=== PATIENT | female | born 1980 | race Caucasian/White ===

== ENCOUNTER → 2017-03-20 | Outpatient (CLI) | payer BC ==
[~2017-03-20] MED LIST: CYCL10TA9 PO; DULO30CA PO; GBPN600T PO; NAPR-243 PO; NORG1TAB15 PO; OXYC-272 PO; TRAM50TA2 PO
== END ==
LOC: LABNPT 10:45
PROVIDERS: ATTEND Obstetrics & Gynecology
DX: O14.03 Mild to moderate pre-eclampsia, third trimester (principal); Z3A.00 Weeks of gestation of pregnancy not specified
CPT/HCPCS: 82570; 84156

== ENCOUNTER → 2017-04-05 | Outpatient (CLI) | payer BC ==
[2017-04-05 12:37] LABS: PROTEIN/CREATININE RATIO 0.28
== END ==
LOC: LABNPT 12:14
PROVIDERS: ATTEND Obstetrics & Gynecology
DX: O14.03 Mild to moderate pre-eclampsia, third trimester (principal); Z3A.00 Weeks of gestation of pregnancy not specified
CPT/HCPCS: 82570; 84156

== ENCOUNTER 2017-04-08 11:34 | Inpatient (IN) | payer BC ==
[2017-04-08] VITALS (7 sets, daily range): BP systolic 130–158; BP diastolic 76–89
[~2017-04-08] VITALS: Ht 167.6 cm; Wt 79.8 kg
[2017-04-08] MEDS ORDERED: D5 LR IV SOLUTION 1,000 ML IV ONE (11:52)
[2017-04-08 12:32] LABS: BILIRUBIN,URINE NEGATIVE (NEGATIVE); KETONES,URINE NEGATIVE (NEGATIVE); LEUKOCYTE ESTERASE ,URINE 1+ (NEGATIVE); NITRITE,URINE NEGATIVE (NEGATIVE); PH,URINE 8 (5-9); PROTEIN,URINE 1+ (NEGATIVE); UROBILINOGEN,URINE NORMAL (NORMAL)
[2017-04-08 12:44] LABS: BASOPHILS % (AUTO) 0 % (0-10); EOSINOPHILS # (AUTO) 0.1 10^3/uL (0.0-0.3); EOSINOPHILS % (AUTO) 1 % (0-10); LYMPHOCYTES # (AUTO) 1.9 X 10^3 (1.0-4.0); LYMPHOCYTES % (AUTO) 31 % (12-44); MEAN CORPUSCULAR HEMOGLOBIN 34 PG (25-34); MEAN CORPUSCULAR HGB CONC 36 G/DL (32-36); MEAN CORPUSCULAR VOLUME 94 FL (80-99); MEAN PLATELET VOLUME 11.1 FL (7.4-10.4); MONOCYTES # (AUTO) 0.4 X 10^3 (0.0-1.0); MONOCYTES % (AUTO) 6 % (0-12); NEUTROPHILS # (AUTO) 3.7 X 10^3 (1.8-7.8); NEUTROPHILS % (AUTO) 62 % (42-75); PLATELET COUNT 147 10^3/uL (130-400); RED BLOOD COUNT 3.48 10^6/uL (4.35-5.85); RED CELL DISTRIBUTION WIDTH 13.5 % (10.0-14.5); WHITE BLOOD COUNT 5.9 10^3/uL (4.3-11.0)
[2017-04-08 12:52] LABS: SQUAMOUS EPITHELIAL CELL,UR 0-2 /HPF; WBC,URINE 0-2 /HPF
[2017-04-08 12:55] LABS: ALANINE AMINOTRANSFERASE 15 U/L (0-55); ALBUMIN 3.1 GM/DL (3.2-4.5); ANION GAP 13 MMOL/L (5-14); ASPARTATE AMINO TRANSFERASE 26 U/L (5-34); BILIRUBIN,TOTAL 0.5 MG/DL (0.1-1.0); BLOOD UREA NITROGEN 4 MG/DL (7-18); BUN/CREATININE RATIO 7; CALCIUM 8.9 MG/DL (8.5-10.1); CARBON DIOXIDE 20 MMOL/L (21-32); CHLORIDE 106 MMOL/L (98-107); CREATININE SERUM 0.55 MG/DL (0.60-1.30); GFR ESTIMATED > 60; GLUCOSE 66 MG/DL (70-105); LACTATE DEHYDROGENASE 210 U/L (125-220); POTASSIUM 2.7 MMOL/L (3.6-5.0); SODIUM 139 MMOL/L (135-145); TOTAL PROTEIN 5.7 GM/DL (6.4-8.2); URIC ACID 6.5 MG/DL (2.6-7.2)
[2017-04-08 12:57] LABS: PROTEIN/CREATININE RATIO 0.29
[2017-04-08] MEDS ORDERED: metroNIDAZOLE 500MG/100ML IVPB 100 ML IV ONE (14:30)
--- NOTE | 2017-04-08 14:39 | History & Physical ---
History and Physical Date Seen by Provider: Apr 08, 2017 Time Seen by Provider: 14:33 this patient is a 36-year-old white female with an EDC of [phone]. She was seen in clinic on this date with blood pressure 153/93. 3 days prior her blood pressure had elevated to 135/92 urine protein creatinine ratio was borderline at 0.28. Her platelet count had dropped from prior levels. It was at 155. She was having occasional contraction denied ruptured membranes or bleeding. She s She was requesting primary delivery to avoidaid she had occasional mild headache. Her being complicated by an abnormal tetra test giving a Down syndrome risk of 1 in 79. Amniocentesis was performed and showed normal karyotype. Her history is also significant for having had a fractured pelvis requiring surgery on multiple occasions. Healing problems with the the pelvic repairs and had pins that had to be replaced at one point as well. Her bladder was damaged in the period that her bladder has been repaired. the orthopedist who performed her pelvic surgery was noncommittal on whether she should avoid labor and a vaginal delivery. The feeling was that if her pelvis was damaged it could be worse than her previous repairs in order to repair it risk for additional injury would be elevated. Decision made to proceed with delivery when it is time for delivery. She was sent to labor and delivery for my clinic secondary to her increasing blood pressures. Allergies are none Medications are vitamins Medical history, past surgical history, obstetric history, family history, and social histories are per the antepartum record HEENT exam is normal Neck is supple no lymphadenopathy no thyromegaly Abdomen is gravid soft nontender nondistended Extreme show no clubbing or cyanosis. There is no Homans sign. Her back shows scars in the lower more area from her previous pelvic surgeries. She has a vertical midline incision scar from her anterior approach to repairs from from a traumatic fracture. Pelvic exam is deferred Monitor shows an occasional contraction with a normal heart rate pattern with numerous accelerations and no decelerations Lab work in my clinic is included in the chart. Repeat lab work from today is as follows Laboratory Tests Test 04/08/17 12:00 04/08/17 12:10 Range/Units Urine Color YELLOW Urine Clarity CLEAR Urine pH 8 5-9 Urine Specific [place] 1.015 L 1.016-1.022 Urine Protein 12 6-12 MG/DL Urine Glucose (UA) NEGATIVE NEGATIVE Urine Ketones NEGATIVE NEGATIVE Urine Nitrite NEGATIVE NEGATIVE Urine Bilirubin NEGATIVE NEGATIVE Urine Urobilinogen NORMAL NORMAL MG/DL Urine Leukocyte Esterase 1+ H NEGATIVE Urine RBC (Auto) 2+ H NEGATIVE Urine RBC RARE /HPF Urine WBC 0-2 /HPF Urine Squamous Epithelial Cells 0-2 /HPF Urine Crystals NONE /LPF Urine Bacteria TRACE /HPF Urine Casts NONE /LPF Urine Mucus NEGATIVE /LPF Urine Culture Indicated NO Urine Creatinine 41 30-125 MG/DL Urine Protein/Creatinine Ratio 0.29 White Blood Count 5.9 4.3-11.0 10^3/uL Red Blood Count 3.48 L 4.35-5.85 10^6/uL Hemoglobin 11.7 11.5-16.0 G/DL Hematocrit 33 L 35-52 % Mean Corpuscular Volume 94 80-99 FL Mean Corpuscular Hemoglobin 34 25-34 PG Mean Corpuscular Hemoglobin Concent 36 32-36 G/DL Red Cell Distribution Width 13.5 10.0-14.5 % Platelet Count 147 130-400 10^3/uL Mean Platelet Volume 11.1 H 7.4-10.4 FL Neutrophils (%) (Auto) 62 42-75 % Lymphocytes (%) (Auto) 31 12-44 % Monocytes (%) (Auto) 6 0-12 % Eosinophils (%) (Auto) 1 0-10 % Basophils (%) (Auto) 0 0-10 % Neutrophils # (Auto) 3.7 1.8-7.8 X 10^3 Lymphocytes # (Auto) 1.9 1.0-4.0 X 10^3 Monocytes # (Auto) 0.4 0.0-1.0 X 10^3 Eosinophils # (Auto) 0.1 0.0-0.3 10^3/uL Basophils # (Auto) 0.0 0.0-0.1 10^3/uL Sodium Level 139 135-145 MMOL/L Potassium Level 2.7 L 3.6-5.0 MMOL/L Chloride Level 106 98-107 MMOL/L Carbon Dioxide Level 20 L 21-32 MMOL/L Anion Gap 13 5-14 MMOL/L Blood Urea Nitrogen 4 L 7-18 MG/DL Creatinine 0.55 L 0.60-1.30 MG/DL Estimat Glomerular Filtration Rate > 60 BUN/Creatinine Ratio 7 Glucose Level 66 L 70-105 MG/DL Uric Acid 6.5 2.6-7.2 MG/DL Calcium Level 8.9 8.5-10.1 MG/DL Total Bilirubin 0.5 0.1-1.0 MG/DL Aspartate Amino Transf (AST/SGOT) 26 5-34 U/L Alanine Aminotransferase (ALT/SGPT) 15 0-55 U/L Alkaline Phosphatase 144 H 40-136 U/L Lactate Dehydrogenase 210 125-220 U/L Total Protein 5.7 L 6.4-8.2 GM/DL Albumin 3.1 L 3.2-4.5 GM/DL Vital Signs Date Time Temp Pulse Resp B/P (MAP) Pulse Ox O2 Delivery O2 Flow Rate FiO2 04/08/17 13:40 69 18 130/84 Room Air 04/08/17 13:15 71 18 142/86 Room Air 04/08/17 12:15 72 18 130/84 Room Air 04/08/17 11:55 99.0 69 18 158/81 Room Air Assessment and plan 36 and 6/2 weeks gestation patient with history of pelvic trauma warranting delivery who also has preeclampsia. She had been addie but has not shown any cervical change and contractions and decreased with hydration. Plan is for admission easily preeclampsia and proceed with delivery at 37 weeks gestation which is tomorrow. If her preeclampsia becomes delivery would be accomplished promptly. patient understands the plan and agrees with that plan. 36-6/7 weeks' gestation with preeclampsia Allergies and Home Medications Allergies Coded Allergies: NKANo Known Allergies (Verified Allergy, Unknown, 07/10/06) Home Medications Cyclobenzaprine Hcl 10 Mg Tablet, 10 MG PO TID PRN for MUSCLE SPASMS, (Reported) PRN MUSCLES SPASMS Duloxetine Hcl 30 Mg Capsule.dr, 30 MG PO DAILY, (Reported) Gabapentin 600 Mg Tab, 600 MG PO TID, (Reported) Naproxen 500 Mg Tablet, 1 EACH PO TID PRN for PAIN, #20 FOR PAIN Prescribed by: THIERNO VILLATORO on 03/15/15 0158 Norgestimate-Ethinyl Estradiol 1 Each Tablet, 1 TAB PO DAILY, (Reported) Oxycodone Hcl/Acetaminophen 1 Tab Tablet, 1 TAB PO TID PRN for SEVERE PAIN, ( Reported) NEEDED SEVERE PAIN Tramadol Hcl 50 Mg Tablet, 50 MG PO Q6H PRN for PAIN, (Reported) NEEDED PAIN Clinical Quality Measures DVT/VTE Risk/Contraindication: Risk Factor Score Per Nursin RFS Level Per Nursing on Admit: 1=Low/No VTE PPX CINDY TY MD Apr 08, 2017 2:39 pm
[2017-04-08] MEDS ORDERED: ACETAMINOPHEN 500 MG TAB (TYLENOL) PO PRN (19:00)
[2017-04-08] MEDS: D5 LR IV SOLUTION 1,000 ML IV SCH (20:10)
[2017-04-09] VITALS (15 sets, daily range): BP systolic 88–133; BP diastolic 61–88
[2017-04-09] MEDS: D5 LR IV SOLUTION 1,000 ML IV SCH (02:49)
[2017-04-09] MEDS ORDERED: LACTATED RINGERS 2,000 ML IV ONE (04:23)
[2017-04-09] MEDS ORDERED: CITRIC ACID/SOB CIT (BICITRA) 30 ML UDC ONE (05:40)
[2017-04-09] MEDS ORDERED: FAMOTIDINE 20MG/2ML IV (PEPCID) ONE (05:40)
[2017-04-09] MEDS ORDERED: METOCLOPRAMIDE INJ 10 MG/2 ML (REGLAN) ONE (05:40)
[2017-04-09] MEDS ORDERED: LACTATED RINGERS 1,000 ML IV PRN (05:47)
[2017-04-09] MEDS ORDERED: CITRIC ACID/SOB CIT (BICITRA) 30 ML UDC PO ONE (06:00)
[2017-04-09] MEDS ORDERED: METOCLOPRAMIDE INJ 10 MG/2 ML (REGLAN) IV ONE (06:00)
[2017-04-09] MEDS ORDERED: FAMOTIDINE 20MG/2ML IV (PEPCID) IV ONE (06:00)
[2017-04-09] MEDS: LACTATED RINGERS 1,000 ML IV PRN ×2 (06:29→08:00)
[2017-04-09] MEDS ORDERED: metroNIDAZOLE 500MG/100ML IVPB 100 ML ONE (06:31)
[2017-04-09] MEDS ORDERED: ceFAZolin 2 GM/50 ML NS 50 ML ONE (06:34)
--- NOTE | 2017-04-09 06:51 | Progress Note-Pre Operative ---
Pre-Operative Progress Note H&P Reviewed The H&P was reviewed, patient examined and no changes noted. Date Seen by Provider: Apr 09, 2017 Time Seen by Provider: 06:50 Date H&P Reviewed: Apr 09, 2017 Time H&P Reviewed: 06:50 Pre-Operative Diagnosis: 37 week with preeclampsia CINDY TY MD Apr 09, 2017 6:51 am
[2017-04-09] MEDS ORDERED: OXYTOCIN/NORMAL SALINE 500 ML IV SCH (06:52)
[2017-04-09] MEDS ORDERED: MEASLES,MUMPS,RUBELLA 1 EA INJ SC ONE (07:00)
[2017-04-09] MEDS ORDERED: MEPERIDINE (DEMEROL) INJ 100 MG/ML IM PRN (07:00)
[2017-04-09] MEDS ORDERED: ceFAZolin INJECTION 2,000 MG in NS (IVPB) 50 ML IV ONE (07:00)
[2017-04-09] MEDS ORDERED: PROMETHAZINE INJ 25 MG/ML (PHENERGAN) AMP IM PRN (07:00)
[2017-04-09] MEDS ORDERED: TETANUS,DIPTH,PERTUSS P/F (BOOSTRIX) 0.5 ML VIAL IM ONE (07:00)
[2017-04-09] MEDS ORDERED: D5 LR IV SOLUTION 1,000 ML IV ONE ×2 (07:00→17:22)
--- NOTE | 2017-04-09 07:03 | Progress Note-Standard ---
Standard Progress Note Progress Notes/Assess & Plan Date Seen by Provider: Apr 09, 2017 Time Seen by Provider: 07:01 Progress/Assessment & Plan patient without complaint. She denies headache. She denies rupture membranes or bleeding. She does feel baby moving. She has an occasional contraction. Vital Signs Date Time Temp Pulse Resp B/P (MAP) Pulse Ox O2 Delivery O2 Flow Rate FiO2 04/09/17 05:55 98.6 74 18 123/74 97 04/08/17 23:37 98.6 74 18 130/83 97 04/08/17 19:38 98.6 72 18 135/76 Room Air 04/08/17 18:00 97.7 75 18 134/89 99 Room Air 04/08/17 13:40 69 18 130/84 Room Air 04/08/17 13:15 71 18 142/86 Room Air 04/08/17 12:15 72 18 130/84 Room Air 04/08/17 11:55 99.0 69 18 158/81 Room Air I & O 04/09/17 07:00 Intake Total 2000 ml Balance 2000 ml Vital signs are stable. Blood pressures are labile but have been less than 160/ 110. Laboratory Tests Test 04/08/17 12:00 04/08/17 12:10 Range/Units Urine Color YELLOW Urine Clarity CLEAR Urine pH 8 5-9 Urine Specific [place] 1.015 L 1.016-1.022 Urine Protein 12 6-12 MG/DL Urine Glucose (UA) NEGATIVE NEGATIVE Urine Ketones NEGATIVE NEGATIVE Urine Nitrite NEGATIVE NEGATIVE Urine Bilirubin NEGATIVE NEGATIVE Urine Urobilinogen NORMAL NORMAL MG/DL Urine Leukocyte Esterase 1+ H NEGATIVE Urine RBC (Auto) 2+ H NEGATIVE Urine RBC RARE /HPF Urine WBC 0-2 /HPF Urine Squamous Epithelial Cells 0-2 /HPF Urine Crystals NONE /LPF Urine Bacteria TRACE /HPF Urine Casts NONE /LPF Urine Mucus NEGATIVE /LPF Urine Culture Indicated NO Urine Creatinine 41 30-125 MG/DL Urine Protein/Creatinine Ratio 0.29 White Blood Count 5.9 4.3-11.0 10^3/uL Red Blood Count 3.48 L 4.35-5.85 10^6/uL Hemoglobin 11.7 11.5-16.0 G/DL Hematocrit 33 L 35-52 % Mean Corpuscular Volume 94 80-99 FL Mean Corpuscular Hemoglobin 34 25-34 PG Mean Corpuscular Hemoglobin Concent 36 32-36 G/DL Red Cell Distribution Width 13.5 10.0-14.5 % Platelet Count 147 130-400 10^3/uL Mean Platelet Volume 11.1 H 7.4-10.4 FL Neutrophils (%) (Auto) 62 42-75 % Lymphocytes (%) (Auto) 31 12-44 % Monocytes (%) (Auto) 6 0-12 % Eosinophils (%) (Auto) 1 0-10 % Basophils (%) (Auto) 0 0-10 % Neutrophils # (Auto) 3.7 1.8-7.8 X 10^3 Lymphocytes # (Auto) 1.9 1.0-4.0 X 10^3 Monocytes # (Auto) 0.4 0.0-1.0 X 10^3 Eosinophils # (Auto) 0.1 0.0-0.3 10^3/uL Basophils # (Auto) 0.0 0.0-0.1 10^3/uL Sodium Level 139 135-145 MMOL/L Potassium Level 2.7 L 3.6-5.0 MMOL/L Chloride Level 106 98-107 MMOL/L Carbon Dioxide Level 20 L 21-32 MMOL/L Anion Gap 13 5-14 MMOL/L Blood Urea Nitrogen 4 L 7-18 MG/DL Creatinine 0.55 L 0.60-1.30 MG/DL Estimat Glomerular Filtration Rate > 60 BUN/Creatinine Ratio 7 Glucose Level 66 L 70-105 MG/DL Uric Acid 6.5 2.6-7.2 MG/DL Calcium Level 8.9 8.5-10.1 MG/DL Total Bilirubin 0.5 0.1-1.0 MG/DL Aspartate Amino Transf (AST/SGOT) 26 5-34 U/L Alanine Aminotransferase (ALT/SGPT) 15 0-55 U/L Alkaline Phosphatase 144 H 40-136 U/L Lactate Dehydrogenase 210 125-220 U/L Total Protein 5.7 L 6.4-8.2 GM/DL Albumin 3.1 L 3.2-4.5 GM/DL Vital Signs Date Time Temp Pulse Resp B/P (MAP) Pulse Ox O2 Delivery O2 Flow Rate FiO2 04/09/17 05:55 98.6 74 18 123/74 97 04/08/17 23:37 98.6 74 18 130/83 97 04/08/17 19:38 98.6 72 18 135/76 Room Air 04/08/17 18:00 97.7 75 18 134/89 99 Room Air 04/08/17 13:40 69 18 130/84 Room Air 04/08/17 13:15 71 18 142/86 Room Air 04/08/17 12:15 72 18 130/84 Room Air 04/08/17 11:55 99.0 69 18 158/81 Room Air I & O 04/09/17 07:00 Intake Total 2000 ml Balance 2000 ml Lab work is as noted. Abdomen is gravid nontender. Extreme show clubbing cyanosis. There is some pretibial pitting edema that is normal. There is no Homans sign Assessment and plan hospital day 2 now at 37 weeks gestation with preeclampsia. This patient has history of significant pelvic trauma with abdominal and pelvic surgery preparation. Plan is for primary delivery to avoid trauma to the pelvis. Pressures have been acceptable at bed rest. Plan is to proceed with this morning. CINDY TY MD Apr 09, 2017 7:03 am
[2017-04-09] MEDS ORDERED: fentaNYL INJECTION 100 MCG/2 ML AMP ONE (07:13)
[2017-04-09] MEDS ORDERED: ONDANSETRON 4 MG/2 ML (SDV) Z0FRAN ONE (07:53)
[2017-04-09] MEDS ORDERED: LACTATED RINGERS 1,000 ML IV ONE (07:53)
[2017-04-09] MEDS ORDERED: KETOROLAC 30 MG/ML VIAL IVP NR (08:20)
[2017-04-09] MEDS ORDERED: MEPERIDINE (DEMEROL) INJ 50 MG/ML IVP PRN (08:30)
[2017-04-09] MEDS ORDERED: ONDANSETRON 4 MG/2 ML (SDV) Z0FRAN IV PRN (08:30)
[2017-04-09] MEDS ORDERED: diphenhydrAMINE 50 MG/ML INJ (BENADRYL) IV PRN (08:30)
[2017-04-09] MEDS ORDERED: morphine INJ 10 MG/ML 1ML (SYR OR VIAL) IVP PRN (08:30)
[2017-04-09] MEDS ORDERED: METOCLOPRAMIDE INJ 10 MG/2 ML (REGLAN) IV PRN (08:30)
[2017-04-09] MEDS ORDERED: NALOXONE 0.4 MG/ML 1 ML (NARCAN) VIAL IV PRN ×2 (08:30)
--- NOTE | 2017-04-09 09:12 | OPERATIVE REPORT ---
DATE OF SERVICE: 04/09/2017 PREOPERATIVE DIAGNOSIS: Term at 37 weeks' gestation with preeclampsia and with a history of pelvic trauma, extensive pelvic surgical repairs. POSTOPERATIVE DIAGNOSIS: Term at 37 weeks' gestation with preeclampsia and with a history of pelvic trauma, extensive pelvic surgical repairs. OPERATIVE PROCEDURE: Primary low transverse . FINDINGS: Delivery of a viable male infant with Apgars of 9 and 9 at 1 and 5 minutes, weight of 7 pounds 10 ounces, time of 0747 and cord blood gas of 7.35. TATTOO IDENTIFIER FOR DELIVERY: MERLENE Grimaldo OPERATIVE DESCRIPTION: With the patient in a supine position, under satisfactory spinal anesthesia, she was prepped and draped in the usual fashion for abdominal surgery. Nagel catheter was placed in the urinary bladder and left to dependent drainage. A Pfannenstiel incision made the skin with scalpel at the lower abdomen 2 fingerbreadths above the symphysis pubis. The abdomen was entered in the usual manner. There was some scar tissue along the midline raphe/linea alba. That was taken down with very careful dissection and then the abdomen entered and the bowel was swept away in the usual manner. A bladder retractor was placed in position, a clean scalpel used to make a 4 cm hysterotomy incision transversely across the lower uterine segment. There was some bleeding from the lower pole of the placenta at the incision, the balance of the uterus was entered bluntly digitally and then the incision was extended bluntly as well. A vigorous viable male infant was delivered via the uterine incision. The infant had Apgars of 9 and 9 at 1 and 5 minutes respectively, weight of 7 pounds and 10 ounces and a time of 0747. There was a nuchal cord that was easily release. The infant was bulb suctioned on delivery of the head and again on completion of the delivery. The umbilical cord was doubly clamped and cut and the passed to Jewell Harry RN, the pediatric nurse in attendance for delivery. Cord bloods were obtained, the placenta delivered partially manually and partially spontaneously. It was somewhat adherent to the anterior surface of the uterus. Placenta was sent to pathology for permanent section. The uterus was exteriorized, the anterior wiped clean with a wet laparotomy sponge. The uterine incision closed with a running locked suture of 2-0 Vicryl. Hemostasis was complete. The uterus was returned to the abdominal cavity. All blood, clot and debris removed from the abdominal cavity. The sponge and needle counts were correct. Hemostasis assured. The anterior parietal peritoneum was closed with a running suture of 2-0 Vicryl, the rectus muscles were closed with that suture as well. The rectus fascia was closed with 2-0 Vicryl, subcutaneous tissue with 2-0 Vicryl and the skin with avtar. Estimated blood loss was around 400 mL. The patient tolerated the procedure well and was transferred to the recovery room in stable condition. The has been taken to stable to the full term nursery under the care of nurse Harry. Job ID: [id number] DocumentID: [id number] Dictated Date: 04/09/2017 08:22:08 Resource Specialist Teacher Date: 04/09/2017 09:12:08 Dictated By: CINDY TY MD
[2017-04-09] MEDS ORDERED: METHYLERGONOVINE 0.2 MG/ML (METHERGINE) AMP ONE (10:46)
[2017-04-09] MEDS ORDERED: METHYLERGONOVINE 0.2 MG/ML (METHERGINE) AMP IM NR (11:00)
[2017-04-09] MEDS ORDERED: METHYLERGONOVINE 0.2 MG/ML (METHERGINE) AMP IM ONE (11:30)
[2017-04-09] MEDS ORDERED: BUTORPHANOL INJ 2 MG/ML (STADOL) VIAL IV ONE (12:15)
[2017-04-09] MEDS ORDERED: LACTATED RINGERS 1,000 ML IV SCH (12:45)
--- NOTE | 2017-04-09 12:50 | Progress Note-Standard ---
Standard Progress Note Progress Notes/Assess & Plan Date Seen by Provider: Apr 09, 2017 Time Seen by Provider: 12:39 Progress/Assessment & Plan patient without complaint. She denies headache. She denies rupture membranes or bleeding. She does feel baby moving. She has an occasional contraction. Vital Signs Date Time Temp Pulse Resp B/P (MAP) Pulse Ox O2 Delivery O2 Flow Rate FiO2 04/09/17 05:55 98.6 74 18 123/74 97 04/08/17 23:37 98.6 74 18 130/83 97 04/08/17 19:38 98.6 72 18 135/76 Room Air 04/08/17 18:00 97.7 75 18 134/89 99 Room Air 04/08/17 13:40 69 18 130/84 Room Air 04/08/17 13:15 71 18 142/86 Room Air 04/08/17 12:15 72 18 130/84 Room Air 04/08/17 11:55 99.0 69 18 158/81 Room Air I & O 04/09/17 07:00 Intake Total 2000 ml Balance 2000 ml Vital signs are stable. Blood pressures are labile but have been less than 160/ 110. Laboratory Tests Test 04/08/17 12:00 04/08/17 12:10 Range/Units Urine Color YELLOW Urine Clarity CLEAR Urine pH 8 5-9 Urine Specific [place] 1.015 L 1.016-1.022 Urine Protein 12 6-12 MG/DL Urine Glucose (UA) NEGATIVE NEGATIVE Urine Ketones NEGATIVE NEGATIVE Urine Nitrite NEGATIVE NEGATIVE Urine Bilirubin NEGATIVE NEGATIVE Urine Urobilinogen NORMAL NORMAL MG/DL Urine Leukocyte Esterase 1+ H NEGATIVE Urine RBC (Auto) 2+ H NEGATIVE Urine RBC RARE /HPF Urine WBC 0-2 /HPF Urine Squamous Epithelial Cells 0-2 /HPF Urine Crystals NONE /LPF Urine Bacteria TRACE /HPF Urine Casts NONE /LPF Urine Mucus NEGATIVE /LPF Urine Culture Indicated NO Urine Creatinine 41 30-125 MG/DL Urine Protein/Creatinine Ratio 0.29 White Blood Count 5.9 4.3-11.0 10^3/uL Red Blood Count 3.48 L 4.35-5.85 10^6/uL Hemoglobin 11.7 11.5-16.0 G/DL Hematocrit 33 L 35-52 % Mean Corpuscular Volume 94 80-99 FL Mean Corpuscular Hemoglobin 34 25-34 PG Mean Corpuscular Hemoglobin Concent 36 32-36 G/DL Red Cell Distribution Width 13.5 10.0-14.5 % Platelet Count 147 130-400 10^3/uL Mean Platelet Volume 11.1 H 7.4-10.4 FL Neutrophils (%) (Auto) 62 42-75 % Lymphocytes (%) (Auto) 31 12-44 % Monocytes (%) (Auto) 6 0-12 % Eosinophils (%) (Auto) 1 0-10 % Basophils (%) (Auto) 0 0-10 % Neutrophils # (Auto) 3.7 1.8-7.8 X 10^3 Lymphocytes # (Auto) 1.9 1.0-4.0 X 10^3 Monocytes # (Auto) 0.4 0.0-1.0 X 10^3 Eosinophils # (Auto) 0.1 0.0-0.3 10^3/uL Basophils # (Auto) 0.0 0.0-0.1 10^3/uL Sodium Level 139 135-145 MMOL/L Potassium Level 2.7 L 3.6-5.0 MMOL/L Chloride Level 106 98-107 MMOL/L Carbon Dioxide Level 20 L 21-32 MMOL/L Anion Gap 13 5-14 MMOL/L Blood Urea Nitrogen 4 L 7-18 MG/DL Creatinine 0.55 L 0.60-1.30 MG/DL Estimat Glomerular Filtration Rate > 60 BUN/Creatinine Ratio 7 Glucose Level 66 L 70-105 MG/DL Uric Acid 6.5 2.6-7.2 MG/DL Calcium Level 8.9 8.5-10.1 MG/DL Total Bilirubin 0.5 0.1-1.0 MG/DL Aspartate Amino Transf (AST/SGOT) 26 5-34 U/L Alanine Aminotransferase (ALT/SGPT) 15 0-55 U/L Alkaline Phosphatase 144 H 40-136 U/L Lactate Dehydrogenase 210 125-220 U/L Total Protein 5.7 L 6.4-8.2 GM/DL Albumin 3.1 L 3.2-4.5 GM/DL Vital Signs Date Time Temp Pulse Resp B/P (MAP) Pulse Ox O2 Delivery O2 Flow Rate FiO2 04/09/17 05:55 98.6 74 18 123/74 97 04/08/17 23:37 98.6 74 18 130/83 97 04/08/17 19:38 98.6 72 18 135/76 Room Air 04/08/17 18:00 97.7 75 18 134/89 99 Room Air 04/08/17 13:40 69 18 130/84 Room Air 04/08/17 13:15 71 18 142/86 Room Air 04/08/17 12:15 72 18 130/84 Room Air 04/08/17 11:55 99.0 69 18 158/81 Room Air I & O 04/09/17 07:00 Intake Total 2000 ml Balance 2000 ml Lab work is as noted. Abdomen is gravid nontender. Extreme show clubbing cyanosis. There is some pretibial pitting edema that is normal. There is no Homans sign Assessment and plan hospital day 2 now at 37 weeks gestation with preeclampsia. This patient has history of significant pelvic trauma with abdominal and pelvic surgery preparation. Plan is for primary delivery to avoid trauma to the pelvis. Pressures have been acceptable at bed rest. Plan is to proceed with this morning. April 09, 2017 1239 p.m. Was called to see patient secondary to concern for excess post bleeding.. Previous call has been to me in my office with report of bleeding and assess 1500 mL including thousand cc lost in the recovery room in the uterus was reported to contract nicely and bleeding was minimal with uterine massage. However eventually the bleeding would recur and large clots in the past. Patient was continued on Pitocin and I ordered a dose of Methergine 0.25 mg IM and repeat in 20 minutes. I discussed the immediate postoperative blood loss with the recovery room nurse she felt that the blood loss was within normal range during the period of observation and she had the patient she also felt that the uterus contracted nicely. However she did indicate that just prior to the patient being moved to the floor she discovered to [place] underneath the patient fairly well saturated blood and she had not been aware of that blood loss. Weighing and measuring of that material later looks like over 1000 mL blood loss in the recovery room. I came to see patient with report now the total blood loss wasn't excessive 2400 mL. Patient's blood pressure at one point was 88/60 just prior to the last month and call to me. However patient's pulse was 60. She appeared to be stable per the nurse report. Nurse had reported the patient was episodically nauseated diaphoretic and dizzy and lightheaded. At these points the blood pressure was taken as was the pulse blood pressure was low as was the pulse. This sounded consistent with vasovagal reflex. Patient had her this morning prior to 8 o'clock and has not voided as of yet. Nagel catheter was placed to dependent drainage. Initially catheter was placed in the vagina and blood from the vagina entered the tubing. Catheter was replaced with free drainage of yellow blood free urine. report to me from the current nurse was that patient would respond nicely to uterine massage however her bleeding gradually recurs and again she passing multiple clots. Patient was in bed had received a milligram of Stadol and this was after a prior dose of Demerol. She was sleepy and a bit disoriented secondary to narcotics. She was oriented to person and place. I think the attention she was receiving at this point was causing her concern. I took her pulse and it was less than 80. There was a trickle of blood per the vagina. Bimanual exam performed after Nagel catheter was placed demonstrated a large amount of firm/ gelatinous clot in the uterus. Patient did not tolerate need evacuating that manually. A large portion of it was expelled however. current vital signs are available on the monitor at the bedside. Patient is not tachycardic pulse less than 100. She is on IV Pitocin at 1 25 mL/h restarting maintenance fluids with D5 LR was around 150 in our. After Nagel was placed over 200 mL of blood has been recovered suggests adequate urine output since her . Urine output will continue to be monitored. Lab work was ordered and is pending for CBC, CMP, PT and PTT, and a type and cross for 3 units of packed red blood cells has been ordered.that was blood will be held pending decision to proceed with transfusion. If patient continues to have excessive bleeding then it will require anesthesia for D&C to remove the clot that is forming her uterus. This patient underwent scheduled delivery this morning. Uterus was quite large but it was a easily extracted. Uterine cavity was cleaned with primary sponges there was no retained placenta. EBL for the was 400 mL. Patient's uterus had contracted nicely at the time of the . There was no locations with the . There was no excessive bleeding in the abdominal cavity. I suspect the issue is uterine atony likely was some retained clot. If that does not resolve itself for bleeding continues then D&C will be entertained under general anesthesia. Lab work will be reviewed and patient will be monitored closely. CINDY TY MD Apr 09, 2017 12:50
--- NOTE | 2017-04-09 12:52 | Progress Note-Post Operative ---
Post-Operative Progess Note Surgeon (s)/Upper Leather Cutter (s) Surgeon CINDY MANZANARES MD Upper Leather Cutter: Jerome Manzanares, CC5 Pre-Operative Diagnosis 37 week with preeclampsia and previous pelvic surgery Post-Operative Diagnosis same with some anterior abdominal wall suprafascial adhesions secondary to her celiotomy. Normal intra-abdominal and pelvic anatomy Procedure & Operative Findings Date of Procedure 04/09/17 Procedure Performed/Findings primary low transverse delivery Anesthesia Type spinal Estimated Blood Loss Estimated blood loss (mL): 400 mL Specimens/Packing Specimens Removed placenta and umbilical cord Packing: none CINDY MANZANARES MD Apr 09, 2017 12:52 pm
[2017-04-09 13:12] LABS: BASOPHILS % (AUTO) 0 % (0-10); EOSINOPHILS % (AUTO) 0 % (0-10); LYMPHOCYTES # (AUTO) 1.3 X 10^3 (1.0-4.0); LYMPHOCYTES % (AUTO) 12 % (12-44); MEAN CORPUSCULAR HEMOGLOBIN 34 PG (25-34); MEAN CORPUSCULAR HGB CONC 35 G/DL (32-36); MEAN CORPUSCULAR VOLUME 96 FL (80-99); MEAN PLATELET VOLUME 10.7 FL (7.4-10.4); MONOCYTES # (AUTO) 0.9 X 10^3 (0.0-1.0); MONOCYTES % (AUTO) 8 % (0-12); NEUTROPHILS # (AUTO) 8.6 X 10^3 (1.8-7.8); NEUTROPHILS % (AUTO) 80 % (42-75); PLATELET COUNT 136 10^3/uL (130-400); RED BLOOD COUNT 2.47 10^6/uL (4.35-5.85); RED CELL DISTRIBUTION WIDTH 13.3 % (10.0-14.5); WHITE BLOOD COUNT 10.7 10^3/uL (4.3-11.0)
[2017-04-09 13:26] LABS: INR 1.1 (0.8-1.4); PROTHROMBIN TIME PATIENT 13.4 SEC (12.2-14.7)
[2017-04-09 13:33] LABS: ALANINE AMINOTRANSFERASE 12 U/L (0-55); ALBUMIN 2.3 GM/DL (3.2-4.5); ANION GAP 8 MMOL/L (5-14); ASPARTATE AMINO TRANSFERASE 25 U/L (5-34); BILIRUBIN,TOTAL 0.5 MG/DL (0.1-1.0); BLOOD UREA NITROGEN 5 MG/DL (7-18); BUN/CREATININE RATIO 10; CALCIUM 7.7 MG/DL (8.5-10.1); CARBON DIOXIDE 22 MMOL/L (21-32); CHLORIDE 108 MMOL/L (98-107); CREATININE SERUM 0.49 MG/DL (0.60-1.30); GFR ESTIMATED > 60; GLUCOSE 72 MG/DL (70-105); POTASSIUM 2.9 MMOL/L (3.6-5.0); SODIUM 138 MMOL/L (135-145); TOTAL PROTEIN 4.1 GM/DL (6.4-8.2)
[2017-04-09] MEDS: OXYTOCIN/NORMAL SALINE 500 ML IV SCH ×2 (14:58→23:11)
[2017-04-09] MEDS: KETOROLAC 30 MG/ML VIAL IVP SCH ×3 (15:41→22:10)
--- NOTE | 2017-04-09 16:16 | Diagnostic Imaging Report ---
PROCEDURE: US PELVIC (NON OB) TECHNIQUE: Multiple real-time grayscale images were obtained over the pelvis in various projections transabdominally. INDICATION: Heavy bleeding after . FINDINGS: The uterus is 17 x 11 x 9 cm in size. The endometrium is distended with 9.6 x 5.5 x 6.5 cm heterogenous hypoechoic material with no internal vascularity suggestive of clot. The ovaries are not seen. There is a small amount of free fluid in the left adnexa. IMPRESSION: Hematometra. Dictated by: Dictated on workstation # [id number]
[2017-04-09] MEDS ORDERED: FUROSEMIDE 40 MG/4 ML INJ (LASIX) IVP ONE (17:30)
[2017-04-09] MEDS ORDERED: D5 LR IV SOLUTION 1,000 ML IV SCH (17:30)
[2017-04-09] MEDS: oxyCODONE/APAP 10/325MG (PERCOCET 10) TABLET PO PRN (18:44)
[2017-04-09] MEDS: DOCUSATE SODIUM 100 MG (COLACE) CAP PO SCH ×2 (19:49→22:06)
[2017-04-09] MEDS: CATHETER FLUSH 10 ML SYR IV SCH ×2 (23:12→23:13)
[2017-04-10] VITALS (14 sets, daily range): BP systolic 96–133; BP diastolic 64–88
[2017-04-10] MEDS: oxyCODONE/APAP 10/325MG (PERCOCET 10) TABLET PO PRN ×4 (00:15→20:16)
[2017-04-10] MEDS: KETOROLAC 30 MG/ML VIAL IVP SCH (02:31)
[2017-04-10 06:08] LABS: BASOPHILS % (AUTO) 0 % (0-10); EOSINOPHILS # (AUTO) 0.1 10^3/uL (0.0-0.3); EOSINOPHILS % (AUTO) 1 % (0-10); LYMPHOCYTES # (AUTO) 1.7 X 10^3 (1.0-4.0); LYMPHOCYTES % (AUTO) 22 % (12-44); MEAN CORPUSCULAR HEMOGLOBIN 33 PG (25-34); MEAN CORPUSCULAR HGB CONC 34 G/DL (32-36); MEAN CORPUSCULAR VOLUME 97 FL (80-99); MEAN PLATELET VOLUME 10.8 FL (7.4-10.4); MONOCYTES # (AUTO) 0.5 X 10^3 (0.0-1.0); MONOCYTES % (AUTO) 7 % (0-12); NEUTROPHILS # (AUTO) 5.2 X 10^3 (1.8-7.8); NEUTROPHILS % (AUTO) 69 % (42-75); PLATELET COUNT 115 10^3/uL (130-400); RED CELL DISTRIBUTION WIDTH 13.4 % (10.0-14.5); WHITE BLOOD COUNT 7.5 10^3/uL (4.3-11.0)
[2017-04-10] MEDS: CATHETER FLUSH 10 ML SYR IV SCH ×2 (06:45→19:31)
[2017-04-10] MEDS ORDERED: NS IV 500 ML 500 ML IV ONE (08:00)
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
[2017-04-10] MEDS ORDERED: NS IV 500 ML 500 ML IV SCH (08:16)
[2017-04-10] MEDS ORDERED: ACETAMINOPHEN 325 MG TABLET/CAPLET (TYLENOL) PO NR ×2 (08:27→10:27)
[2017-04-10] MEDS ORDERED: diphenhydrAMINE 25 MG TAB (BENADRYL) PO NR ×2 (08:29→10:30)
[2017-04-10] MEDS: DOCUSATE SODIUM 100 MG (COLACE) CAP PO SCH ×2 (08:47→20:16)
[2017-04-10] MEDS: IBUPROFEN 800 MG (MOTRIN) TAB PO SCH ×3 (08:47→20:16)
[2017-04-10] MEDS ORDERED: FUROSEMIDE 40 MG/4 ML INJ (LASIX) IVP NR ×2 (09:00→12:00)
--- NOTE | 2017-04-10 14:03 | Anesthesia-Regional Post-Op ---
Regional Patient Condition Mental Status: Alert, Oriented x3 Circulation: Same as Pre-Op Headache: Absent Sensation: Full Recovery Motor Block: Absent Post Op Complications Complications None Follow Up Care/Instructions Patient Instructions None needed. Anesthesia/Patient Condition Patient is doing well, no complaints, stable vital signs, no apparent adverse anesthesia problems. No complications reported per nursing. ALFIE MILTON CRNA Apr 10, 2017 14:03
[2017-04-11 00:25] VITALS: BP 131/54
[2017-04-11] MEDS: oxyCODONE/APAP 10/325MG (PERCOCET 10) TABLET PO PRN ×3 (00:39→11:00)
[2017-04-11 04:17] VITALS: BP 118/67
[2017-04-11] MEDS: IBUPROFEN 800 MG (MOTRIN) TAB PO SCH ×2 (04:17→12:06)
[2017-04-11 07:13] LABS: BASOPHILS % (AUTO) 1 % (0-10); EOSINOPHILS # (AUTO) 0.2 10^3/uL (0.0-0.3); EOSINOPHILS % (AUTO) 3 % (0-10); LYMPHOCYTES # (AUTO) 2.1 X 10^3 (1.0-4.0); LYMPHOCYTES % (AUTO) 31 % (12-44); MEAN CORPUSCULAR HEMOGLOBIN 32 PG (25-34); MEAN CORPUSCULAR HGB CONC 35 G/DL (32-36); MEAN CORPUSCULAR VOLUME 92 FL (80-99); MEAN PLATELET VOLUME 10.5 FL (7.4-10.4); MONOCYTES # (AUTO) 0.5 X 10^3 (0.0-1.0); MONOCYTES % (AUTO) 7 % (0-12); NEUTROPHILS # (AUTO) 3.8 X 10^3 (1.8-7.8); NEUTROPHILS % (AUTO) 59 % (42-75); PLATELET COUNT 139 10^3/uL (130-400); RED BLOOD COUNT 2.65 10^6/uL (4.35-5.85); RED CELL DISTRIBUTION WIDTH 16.5 % (10.0-14.5); WHITE BLOOD COUNT 6.6 10^3/uL (4.3-11.0)
[2017-04-11] MEDS ORDERED: DOCU100C37 PO (07:26)
[2017-04-11] MEDS ORDERED: IBUP-1780 PO (07:26)
[2017-04-11] MEDS ORDERED: OXYC-465 PO (07:26)
--- NOTE | 2017-04-11 07:27 | Discharge Instructions ---
Discharge Instructions Discharge Medications New, Converted or Re-Newed RX: RX on Chart Patient Instructions Patient Instructions: as directed Return to The Hospital For: as directed Activity & Diet Discharge Diet: No Restrictions Activity as Tolerated: No Orders-Post D/C & Referrals Follow Up Appt: RTC 1 week for incision check. Call to make follow up appt. for patient in 4 weeks. Wound Care: Remove avtar, apply benzoin and steri strips. Activity Per routine post instructions. Please call in RX to patient pharmacy. Diet as tolerated Patient may shower or tub bathe as desired. Continue home meds CINDY TY MD Apr 11, 2017 7:27 am
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
[2017-04-11 08:00] VITALS: BP 129/83
[2017-04-11] MEDS: DOCUSATE SODIUM 100 MG (COLACE) CAP PO SCH (08:10)
[2017-04-11 13:10] VITALS: BP 133/88
== END 2017-04-11 13:00 | disposition home or self-care (01) | DRG 765 ==
LOC: LDRP 11:34 → 3RD 04-09 09:38
PROVIDERS: ADMIT Obstetrics & Gynecology; ATTEND Obstetrics & Gynecology
PROC: 10D00Z1 Extraction of Products of Conception, Low, Open Approach (ICD-10-PCS; principal; 2017-04-09 07:23)
DX: O14.94 Unspecified pre-eclampsia, complicating childbirth (principal); O90.81 Anemia of the puerperium; D62 Acute posthemorrhagic anemia; O72.1 Other immediate postpartum hemorrhage; Z3A.36 36 weeks gestation of pregnancy; Z37.0 Single live birth
CPT/HCPCS: 36415; 76856; 80053; 81000; 82570; 83615; 84156; 84550; 85025; 85610; 86850; 86900; 86901; 86920; 94664

== ENCOUNTER 2021-10-16 22:29 | Emergency (ER) | payer BC ==
[~2021-10-16] VITALS: Ht 165 cm; Wt 52.0 kg
[~2021-10-16 22:29] MED LIST changes: +DOCU100C37 PO; +IBUP-1780 PO; +OXYC-556 PO
[2021-10-16] MEDS ORDERED: IBUPROFEN 600 MG (MOTRIN) TAB PO ONE (23:15)
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
[2021-10-17 00:05] VITALS: BP 130/96
--- NOTE | 2021-10-17 07:08 | Diagnostic Imaging Report ---
INDICATION: Left foot pain. FINDINGS: Alignment of left foot is appropriate. There are no findings of a joint dislocation. There is no cortical disruption or evidence of an acute fracture. There is no suspicious bone lesion or focal soft tissue abnormality. IMPRESSION: 1. Negative radiographs of the left foot. Dictated by: Dictated on workstation # [id number]
== END 2021-10-17 00:05 | disposition home or self-care (01) ==
LOC: EDUNIT# 22:29 → ER 22:33
DX: S93.602A Unspecified sprain of left foot, initial encounter (principal); F32.A Depression, unspecified; Z79.899 Other long term (current) drug therapy; W18.49XA Other slipping, tripping and stumbling without falling, initial encounter
CPT/HCPCS: 73630